=== PATIENT | male | born 1980 | race Caucasian/White ===

== ENCOUNTER 2025-01-21 10:17 | Emergency (ER) | payer SELFPAY ==
[2025-01-21] MEDS ORDERED: Boostrix 0.5 ML (Tdap) VIAL (>/=7 yrs of age) ONE (11:17)
[2025-01-21] MEDS ORDERED: Iopamidol-370 76% 500 ML MDV (1 ML CHARGE) ONE (11:21)
[2025-01-21 11:33] LABS: #Basophils 0.09 10x3/uL (0.0-0.2); #Eosinophils 0.42 10x3/uL (0.0-0.7); #Monocytes 0.63 10x3/uL (0.11-0.59); #Neutrophils 6.57 10x3/uL (1.40-6.50); %Basophils 1.0 % (0.0-1.0); %Eosinophils 4.7 % (0.0-10.0); %Lymphocytes 13.5 % (21.0-51.0); %Monocytes 7.0 % (0.0-10.0); %Neutrophils 73.4 % (42.0-75.0); Hematocrit 46.6 % (42.0-52.0); Hemoglobin 15.3 g/dL (14.0-18.0); Mean Corpuscular Hemoglobin 30.4 pg (27.0-31.0); Mean Corpuscular Volume 92.6 fL (78.0-98.0); Platelet Count 309 10x3/uL (130-400); Red Blood Cell (RBC) Count 5.03 mill/uL (4.70-6.10); White Blood Cell (WBC) Count 8.96 10x3/uL (4.8-10.8)
[2025-01-21 12:19] LABS: ALT (SGPT) 14 U/L (Less than 45); AST (SGOT) 33 U/L (11-34); Albumin 4.6 g/dL (3.1-4.5); Alkaline Phosphatase 81 U/L (40-110); Anion Gap 12 mmol/L (10-20); BUN (Urea Nitrogen) 15 mg/dL (8.9-20.6); Bilirubin, Total 0.5 mg/dL (0.3-1.2); Calc. Creatinine Clearance 0 mL/min (70-130); Calcium 9.7 mg/dL (7.8-10.44); Carbon Dioxide 27 mmol/L (22-29); Chloride 104 mmol/L (98-107); Globulin 4.3 g/dL (2.4-3.5); Glucose 103 mg/dL (70-105); Potassium 4.7 mmol/L (3.5-5.1); Sodium 138 mmol/L (136-145)
== END 2025-01-21 13:09 | disposition home or self-care (01) ==
LOC: ERS 10:17
DX: K04.7 Periapical abscess without sinus (principal)
CPT/HCPCS: 70487; 80053; 85025; 90471; 90715; 96374; 96375; J2270; J2543; Q9967